=== PATIENT | male | born 1955 | race Caucasian/White ===

== ENCOUNTER 2021-09-06 10:41 | Day surgery (SDCO) | payer MEDICARE, OTHER ==
[~2021-09-06] VITALS: Ht 182.9 cm; Wt 93.5 kg
[~2021-09-06 10:41] MED LIST: ASPIR 8181 MG PO; CENTRUM SILVER1 EAC1 PO; CITRICAL PO; CO Q-10100 MG PO; JANUMET 50-1,01 EACH PO; LEVAQUIN750 MG PO; LOPRESSOR50 MG PO; LOSARTAN-HCTZ1 EAC1 PO; MOBIC7.5 MG PO; PREDNISONE 20MG20 MG PO; VITAMIN C1000 MG PO
[2021-09-06 11:54] LABS: BASOPHIL 0.7 % (0-2); HCT 42.4 % (42.0-52.0); HGB 14.7 g/dl (13.2-18.0); MCH 29.6 pg (25.0-31.0); MCHC 34.7 g/dL (32.0-36.0); MCV 85.5 fL (78.0-100.0); MONOCYTE 7.5 % (0-12); MPV 11.3 fL (6.0-9.5); NEUTROPHIL 66.4 % (41-80); NRBC 0; PLT 330 K/uL (150-400); RBC 4.96 M/uL (4.70-6.00); RDW 13.2 % (11.5-14.0)
[2021-09-06 12:04] LABS: INR 1.06 (0.9-1.2); PROTHROMBIN TIME 13.5 SECONDS (11.9-13.9); PTT 25.8 SECONDS (24.9-34.6)
[2021-09-06 12:20] LABS: IRON % SATURATION 24.2 %SAT (20-50)
[2021-09-06 12:33] LABS: BILIRUBIN NEGATIVE (NEGATIVE); BLOOD NEGATIVE Ery/uL (NEGATIVE); CLARITY CLEAR (CLEAR); COLOR YELLOW (YELLOW); GLUCOSE (U) NORMAL (NORMAL); LEUKOCYTES NEGATIVE Leu/uL (NEGATIVE); NITRITE NEGATIVE (NEGATIVE); PROTEIN NEGATIVE (NEGATIVE); SPECIFIC GRAVITY 1.015 (1.001-1.030); pH 6.5 (5.0-9.0)
[2021-09-06 12:46] LABS: CORONAVIRUS 2019 SARS-COV-2 NEGATIVE (NEGATIVE); INFLUENZA A NAA NEGATIVE (NEGATIVE)
[2021-09-06 12:47] LABS: LACTIC ACID 3.6 mmol/L (0.4-1.9)
[2021-09-06 12:53] LABS: ALBUMIN 4.3 g/dL (3.4-5.0); ALKALINE PHOSHATASE 91 U/L (46-116); ALT 35 U/L (16-63); AST 25 U/L (15-37); BILIRUBIN - TOTAL 0.6 mg/dL (0.2-1.0); BUN 28 mg/dL (7-18); BUN/CREAT RATIO (CALC) 25.9 RATIO; C-REACTIVE PROTEIN < 0.20 mg/dL (<=0.90); CHLORIDE 101 mmol/L (98-107); CO2 (BICARBONATE) 26 mmol/L (21-32); CREATININE 1.08 mg/dL (0.67-1.17); GLOBULIN (CALCULATION) 4.2 g/dL; GLUCOSE 235 mg/dL (74-106); LDH 240 U/L (85-227); MAGNESIUM 1.7 mg/dL (1.8-2.4); POTASSIUM 4.5 mmol/L (3.5-5.1); TOTAL PROTEIN 8.5 g/dL (6.4-8.2)
[2021-09-06] MEDS ORDERED: ADALAT CC60 MG PO (20:33)
[2021-09-06] MEDS ORDERED: LIPITOR20 MG PO (20:34)
[2021-09-06] MEDS ORDERED: COLCRYS0.6 MG PO (20:37)
[2021-09-07 06:45] LABS: BASOPHIL 0.7 % (0-2); EOSINOPHIL 3.3 % (0-7); HCT 36.9 % (42.0-52.0); HGB 12.5 g/dl (13.2-18.0); LYMPHOCYTE 22.5 % (15-48); MCH 29.6 pg (25.0-31.0); MCHC 33.9 g/dL (32.0-36.0); MCV 87.2 fL (78.0-100.0); MONOCYTE 7.8 % (0-12); MPV 11.2 fL (6.0-9.5); NEUTROPHIL 65.1 % (41-80); NRBC 0; PLT 246 K/uL (150-400); RBC 4.23 M/uL (4.70-6.00); RDW 13.2 % (11.5-14.0); WBC 10.7 K/uL (4.0-10.5)
[2021-09-07 07:09] LABS: BUN 21 mg/dL (7-18); BUN/CREAT RATIO (CALC) 22.1 RATIO; CHLORIDE 107 mmol/L (98-107); CO2 (BICARBONATE) 25 mmol/L (21-32); CREATININE 0.95 mg/dL (0.67-1.17); GLUCOSE 83 mg/dL (74-106); LDH 63 U/L (85-227); MAGNESIUM 1.8 mg/dL (1.8-2.4); POTASSIUM 4.4 mmol/L (3.5-5.1)
[2021-09-07 07:10] LABS: C-REACTIVE PROTEIN < 0.20 mg/dL (<=0.90)
[2021-09-08 06:03] LABS: BASOPHIL 0.8 % (0-2); EOSINOPHIL 4.4 % (0-7); HCT 40.3 % (42.0-52.0); HGB 13.9 g/dl (13.2-18.0); LYMPHOCYTE 22.1 % (15-48); MCH 29.8 pg (25.0-31.0); MCHC 34.5 g/dL (32.0-36.0); MCV 86.3 fL (78.0-100.0); MONOCYTE 7.3 % (0-12); MPV 11.2 fL (6.0-9.5); NEUTROPHIL 64.9 % (41-80); NRBC 0; PLT 252 K/uL (150-400); RBC 4.67 M/uL (4.70-6.00); RDW 13.3 % (11.5-14.0); WBC 9.7 K/uL (4.0-10.5)
[2021-09-08 07:05] LABS: BUN/CREAT RATIO (CALC) 17.6 RATIO; CREATININE 0.91 mg/dL (0.67-1.17); POTASSIUM 4.1 mmol/L (3.5-5.1)
[2021-09-08] MEDS ORDERED: METFORMIN HCL500 MG PO (09:15)
[2021-09-08] MEDS ORDERED: TOPROL XL 50 MG50 MG PO (09:15)
[2021-09-08] MEDS ORDERED: LEVAQUIN500 MG PO (13:21)
--- NOTE | 2021-09-08 14:15 | NUR ---
09/08/21 Mr. Brooke lives at home with his spouse. He is independent in the home and community. No discharge planning needs are anticipated.
== END 2021-09-08 15:00 | disposition home or self-care (01) ==
LOC: FER 10:41 → FMS 16:47
PROVIDERS: Emergency Medicine; Nurse Practitioner; ADMIT Allergy & Immunology Allergy
DX: A41.9 Sepsis, unspecified organism (principal); R42 Dizziness and giddiness; R55 Syncope and collapse; I10 Essential (primary) hypertension; E11.9 Type 2 diabetes mellitus without complications; E78.00 Pure hypercholesterolemia, unspecified; K59.00 Constipation, unspecified; E83.42 Hypomagnesemia; Z20.822 Contact with and (suspected) exposure to COVID-19; Z79.82 Long term (current) use of aspirin; Z79.899 Other long term (current) drug therapy; Z88.0 Allergy status to penicillin
CPT/HCPCS: 36415; 70450; 70551; 71260; 80048; 80053; 80061; 81003; 82728; 83036; 83540; 83550; 83605; 83615; 83735; 83880; 84100; 84145; 84443; 85025; 85610; 85730; 86140; 87040; 93005; 93880; 94010; 94760; 94762; G0378; J1650; J2060; J3475; J3490; J7030; U0002